=== PATIENT | male | born 1965 | race Caucasian/White ===

== ENCOUNTER 2018-09-17 07:25 | Day surgery (SDC) | payer OTHER ==
[~2018-09-17 07:25] MED LIST: PROPOFOL INJ 200 MG/20 ML VIAL IV ONE
[2018-09-17] MEDS ORDERED: PROPOFOL INJ 200 MG/20 ML VIAL IV ONE (08:20)
[2018-09-17 09:02] VITALS: BP 136/89
--- NOTE | 2018-09-17 13:12 | Operative Report ---
Operative Report DATE OF SURGERY: 09/17/18 Operative Report: The risks, benefits and alternatives of the procedure including the risk of bleeding, perforation requiring surgery have been explained to the patient in detail and informed consent has been obtained. Patient is taken back to the endoscopy suite and placed in the left, lateral decubital position. Timeout was called. Propofol medication is administered. A rectal examination is done which did not reveal any masses, tears or fissures. An Olympus videoscope was introduced into the patient's rectum. The scope was then carefully advanced all the way to the cecum. Cecum was identified by the usual anatomical landmarks including the ileocecal valve as well as the appendiceal office. Photodocumentation is obtained. The scope was then sequentially pulled back via the various segments of the colon including the ascending colon, hepatic flexure, transverse colon, splenic flexure, descending colon and finally into the rectosigmoid portions of the colon. Retroflexion maneuvers performed. PREOPERATIVE DIAGNOSIS: Ulcerative proctitis for surveillance colonoscopy POSTOPERATIVE DIAGNOSIS: Diverticulosis without any evidence of diverticulitis. Internal hemorrhoids. Mild areas of nonspecific inflammation in the colon status post biopsy OPERATION: Colonoscopy with biopsy SURGEON: LORENA MARTINEZ ANESTHESIA: LMAC TISSUE REMOVED OR ALTERED: As noted above. COMPLICATIONS: None. ESTIMATED BLOOD LOSS: None. INTRAOPERATIVE FINDINGS: As noted above. PROCEDURE: Patient tolerated the procedure well. No immediate postprocedure complications are noted. Patient is discharged in good condition. Discharge date 09/17/2018. Discharge diet: Regular. Discharge activity: Regular. 2 to 3-week follow-up to discuss findings. Patient is instructed to call the office or proceed to the emergency room should there be any further problems or questions. Wait on the pathology.
== END 2018-09-17 09:03 | disposition home or self-care (01) ==
LOC: END 07:25
PROVIDERS: ATTEND Internal Medicine Gastroenterology
DX: K51.20 Ulcerative (chronic) proctitis without complications (principal); K57.30 Diverticulosis of large intestine without perforation or abscess without bleeding; K64.8 Other hemorrhoids; K52.9 Noninfective gastroenteritis and colitis, unspecified; K62.89 Other specified diseases of anus and rectum
CPT/HCPCS: 88305 ×2; J2704; 45380

== ENCOUNTER → 2019-01-09 | Day surgery (SDC) | payer OTHER ==
--- NOTE | 2019-01-09 13:24 | RADIOLOGY REPORT (SQ) ---
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 TECHNIQUE: Dynamic and static ulrich-scale images acquired of the thyroid gland. Selected additional c olor/power Doppler images recorded. All images stored to PACS. LIMITATIONS: None. FINDINGS: RIGHT LOBE: Normal size. Homogeneous echotexture. No cystic or solid masses. LEFT LOBE: Normal size. Homogeneous echotexture. No cystic or solid masses. ISTHMUS: Normal size. Homogeneous echotexture. No cystic or solid masses. OTHER: There is a 4.9 x 2.6 x 1.7 cm well-demarcated hypoechoic area in the right upper aspect of the neck. There is no increased vascularity. Infectious or inflammatory node is a possibility. Neopla sm cannot be excluded. IMPRESSION: 1. Normal thyroid ultrasound. 2. Large hypoattenuating lesion in the right aspect of the upper neck. This measures 4.9 x 2.6 x 1. 7 cm. TECHNICAL DOCUMENTATION: JOB ID: [id number] [employer]- All Rights Reserved Reading location - IP/workstation name: [email or web address]
--- NOTE | 2019-01-09 14:56 | RADIOLOGY REPORT (SQ) ---
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 TECHNIQUE: The procedure was discussed with the patient and written informed consent obtained. A ti meout was performed to confirm the procedure and patient's identity. The skin of the neck was preppe d and draped in sterile fashion and 10 mL of 1% lidocaine administered for local anesthesia. Under sonographic guidance, fine needle aspiration biopsy was per formed of the mass in the right aspect of the neck Three separate aspirations were performed. Hemostasis was obtained with direct manual compression. There were no immediate complications. LIMITATIONS: None. FINDINGS: PATHOLOGY: Pending. IMPRESSION: ULTRASOUND-GUIDED BIOPSY PERFORMED OF A MASS IN THE RIGHT ASPECT OF THE NECK. PATHOLOGY PENDING AT THE TIME OF DICTATION. COMMENT: Patient medication list reviewed: Yes- Quality ID# [id number]:Eligible professional attests to doc umenting in the medical record they obtained, updated, or reviewed the patient's current medications. TECHNICAL DOCUMENTATION: JOB ID: [id number] [employer]- All Rights Reserved Reading location - IP/workstation name: [email or web address]
== END ==
LOC: RAD 12:28
PROVIDERS: ATTEND Otolaryngology
DX: E04.1 Nontoxic single thyroid nodule (principal)
CPT/HCPCS: 60100; 76536; 88173

== ENCOUNTER 2019-03-01 06:45 | Day surgery (SDC) | payer OTHER ==
[~2019-03-01 06:45] MED LIST changes: +CEFAZOLIN SODIUM 2 GM in DEXTROSE 5%-WATER 100 ML IV PRN; +LACTATED RINGERS 1000 ML IV PRN; -PROPOFOL INJ 200 MG/20 ML VIAL IV ONE
[2019-03-01] MEDS ORDERED: LIDOCAINE 2%/EPINEPHRINE INJ 1.7 ML CARTRIDGE ONE (07:35)
[2019-03-01] MEDS ORDERED: FENTANYL CITRATE INJ/PF 250 MCG/5 ML AMPULE ONE (08:26)
[2019-03-01] MEDS ORDERED: MIDAZOLAM 2 MG/2 ML INJ ONE (08:26)
[2019-03-01] MEDS ORDERED: DEXAMETHASONE SOD PHOSPHATE INJ 4 MG/1 ML VIAL ONE ×2 (08:27→13:05)
[2019-03-01] MEDS ORDERED: ONDANSETRON HCL INJ/PF 4 MG/2 ML SDV ONE (08:27)
[2019-03-01] MEDS ORDERED: PROPOFOL INJ 200 MG/20 ML VIAL IV ONE ×2 (08:27→09:51)
[2019-03-01] MEDS ORDERED: SUCCINYLCHOLINE CHLORIDE INJ 200 MG/10 ML VIAL ONE (08:56)
[2019-03-01] MEDS ORDERED: PROMETHAZINE HCL INJ 25 MG/1 ML VIAL IV PRN (10:05)
[2019-03-01] MEDS ORDERED: DIPHENHYDRAMINE HCL 50 MG/ML VIAL IV PRN (10:05)
[2019-03-01] MEDS ORDERED: MORPHINE SULFATE 10 MG/ML INJ IV PRN (10:05)
[2019-03-01] MEDS ORDERED: FENTANYL CITRATE INJ/PF 100 MCG/2 ML AMPUL IV PRN ×3 (10:05)
[2019-03-01] MEDS ORDERED: MEPERIDINE HCL/PF INJ 25 MG/1 ML DISP.SYRIN IV PRN (10:05)
[2019-03-01] MEDS ORDERED: ONDANSETRON HCL INJ/PF 4 MG/2 ML SDV IV PRN ×2 (10:05→12:46)
[2019-03-01] MEDS ORDERED: KETOROLAC TROMETHAMINE INJ/PF 30 MG/1 ML SDV ONE (12:21)
[2019-03-01] MEDS ORDERED: HYDROCODONE/ACETAMINOPHEN 5-325 MG TABLET PO PRN (12:46)
[2019-03-01 13:58] VITALS: BP 130/83
--- NOTE | 2019-03-06 15:41 | Operative Report ---
Operative Report-[facility] Operative Report: Date of procedure: March 01, 2019 Preoperative diagnoses: 1. Right neck mass Postoperative diagnoses: 1. Right neck mass Operation performed: 1. Removal of/excision of a deep space right neck mass greater than 5 x 3 x 2 cm directly adjacent the right SCM/sternocleidomastoid muscle and the right submandibular gland (CPT code 88711) 2. Right neck exploration under general anesthesia 3. Intraoperative right facial nerve monitoring with the [facility] Primary Surgeon of Record: Dr. Prakash Long Assisting surgeon: NONE Anesthetic: General endotracheal tube anesthesia Anesthesia provider: CORTEZ Christine Estimated blood loss: 25 mL Fluids: 600 mL Urine output: N/A Complications: None Drains: None Sponge Count: Verified Needle Count: Verified Materials forwarded as specimen: 1. Right neck mass, level 2/3, measuring greater than 5 x 3 x 2 cm 2. Deep neck space right sided lymph nodes deep to the neck mass in the area of level 2/3 Findings: 1. Right neck mass, level 2/3, measuring greater than 5 x 3 x 2 cm and the mass was elongated and multi lobular with irregular margins and was otherwise noted to be intact upon removal. The mass was directly adjacent/butted up against the right submandibular gland and right SCM/sternocleidomastoid muscle. 2. There was a small cluster of small lymph nodes deep to the right neck mass which were also removed as permanent specimens. 3. The right SCM, submandibular gland, and surrounding tissues otherwise appeared unremarkable and there was no additional lymphadenopathy or concerning lymph nodes noted. Indications: This is a 53-year-old white male patient who has been seen and evaluated [place] [facility]. 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 There was no sequelae and the patient had been doing well until a right neck fullness/mass was noted to increase in size over the past year. CT neck imaging and right neck mass FNAB, which was unremarkable, were all completed prior to surgery. There was an extensive discussion held with the patient with plan made to proceed with right neck exploration with neck mass removal and intraoperative facial nerve monitoring. The patient voiced an understanding of the medical findings and desire to proceed with right neck surgery. The patient voiced an understanding of the procedure/surgery and all of the risks and complications, and consent was obtained. Procedure: The patient was taken to the main operating room and placed on the operating room table in the supine position. Appropriate monitors were placed. Using mask and IV access, general anesthesia was induced. The patient was next transorally intubated without difficulty. At this point the right facial nerve monitoring NIM system was set up and tested appropriately before beginning the case. The patient was then positioned for neck surgery. The patient's right neck had a planned incision site marked with a surgical marking pen followed by infiltration with local anesthetic with epinephrine. The patient was then prepped and draped in a sterile fashion for right surgery. Next, an incision was made down through the level of the subcutaneous tissues and platysma. Using blunt and sharp dissection as well as Bovie and bipolar electrocautery skin/soft tissue flaps were elevated in a sub-platysmal fashion without difficulty. The right SCM was identified along with the right submandibular gland. The right neck mass as described above was identified via right neck exploration and was noted to be directly adjacent these structures. Using blunt and sharp dissection along with cautery the right neck mass was mobilized away from surrounding structures and removed. The level 2/3 small lymph nodes just deep to the mass were also mobilized and removed for permanent pathology evaluation. The wound site was again thoroughly irrigated with normal saline and suctioned. Bipolar electrocautery was used to provide adequate hemostasis. At this point to postage size stamp pieces of Surgicel were placed into the wound bed. There was again adequate hemostasis noted. At this point 5-0 Monocryl suture was used to reapproximate the deep tissues and the platysmal layer. 5-0 Monocryl suture was also used to reapproximate the subcutaneous and deep dermal tissue layers followed by skin reapproximation using a continuous running suture. Next, the skin was cleaned and dried followed by placement of Mastisol, Steri-Strips, and a fluffs pressure dressing. The patient was then returned to the anesthesia staff and was allowed to emerge from general anesthesia. The patient was extuba garrick in the main operating room and was then transported to the post-anesthesia recovery unit in stable condition. There were no complications.
== END 2019-03-01 13:45 | disposition home or self-care (01) ==
LOC: OROUT 06:45
PROVIDERS: ATTEND Otolaryngology
DX: C79.89 Secondary malignant neoplasm of other specified sites (principal); G47.33 Obstructive sleep apnea (adult) (pediatric); Z79.899 Other long term (current) drug therapy
CPT/HCPCS: 88307 ×2; 00320; 21554; J2250; J3490; J0690; J1100; J3010; J1885; J0330; J2405; J7060; J2704; 320; 88341; 88342

== ENCOUNTER → 2019-03-19 | Outpatient (CLI) | payer OTHER ==
--- NOTE | 2019-03-20 14:34 | RADIOLOGY REPORT (SQ) ---
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 RADIONUCLIDE AND DOSE: 8.7 mCi F18 FDG The route of agent administration: Intravenous FASTING BLOOD SUGAR: 88 mg/dl CONTRAST TYPE AND DOSE: No CT contrast given. TECHNIQUE: Blood glucose level was verified. Above dose of FDG was injected intravenously. 2-D seg mented attenuation correction images were obtained from the base of the skull to the midthighs. Nonc ontrast CT images were obtained for attenuation correction and fusion with emission images. CT image s were performed without oral or intravenous contrast and are not sensitive for parenchymal lesions. A series of overlapping emission PET images were obtained. Images reviewed and manipulated at [facility] work station by the radiologist. Images stored on PACS. LIMITATIONS: None. FINDINGS: HEAD AND NECK: No areas of abnormal metabolic activity in the soft tissues of the head and neck. CHEST: No areas of abnormal metabolic activity in the chest. ABDOMEN AND PELVIS: The liver demonstrates heterogeneous non focal FDG uptake with an average SUV of 2.6. There is expected physiologic activity throughout the gastrointestinal and genitourinary tracts . No areas of abnormal metabolic activity are identified in the abdomen and pelvis. PROXIMAL LOWER EXTREMITIES: No areas of abnormal metabolic activity in the soft tissues of the lower extremities. BONES: Mild focal uptake within the right glenohumeral joint is presumed to be related to osteoarthro sis. No areas of abnormal metabolic activity are identified in the imaged axial and appendicular ske leton. ADDITIONAL CT FINDINGS: Variant circumaortic left renal vein. OTHER: No other findings. IMPRESSION: No metabolic evidence of metastases. TECHNICAL DOCUMENTATION: JOB ID: [id number] [employer]- All Rights Reserved Reading location - IP/workstation name: [email or web address]
== END ==
LOC: RAD 10:18
PROVIDERS: ATTEND Otolaryngology
DX: C76.0 Malignant neoplasm of head, face and neck (principal)
CPT/HCPCS: 78815; A9552

== ENCOUNTER 2019-03-27 11:31 | Day surgery (SDC) | payer OTHER ==
[~2019-03-27 11:31] MED LIST changes: -CEFAZOLIN SODIUM 2 GM in DEXTROSE 5%-WATER 100 ML IV PRN; +CLINDAMYCIN 900 MG/D5W RTU 900 MG/50 ML RTUPB IV ONE; -LACTATED RINGERS 1000 ML IV PRN
[2019-03-27] MEDS ORDERED: ROCURONIUM BROMIDE INJ 50 MG/5 ML VIAL IV ONE (12:00)
[2019-03-27] MEDS ORDERED: SUCCINYLCHOLINE CHLORIDE INJ 200 MG/10 ML VIAL ONE (12:00)
[2019-03-27] MEDS ORDERED: HYDROMORPHONE HCL INJ/PF 2 MG/ML AMPULE ONE (14:51)
[2019-03-27] MEDS ORDERED: MIDAZOLAM 2 MG/2 ML INJ ONE ×2 (14:51→15:57)
[2019-03-27] MEDS ORDERED: FENTANYL CITRATE INJ/PF 100 MCG/2 ML AMPUL ONE (14:51)
[2019-03-27] MEDS ORDERED: PROPOFOL INJ 200 MG/20 ML VIAL IV ONE (14:52)
[2019-03-27] MEDS ORDERED: BUPIVACAINE HCL 0.5%/EPI 1:200000 INJ 1.8 ML CARTRIDGE ONE (15:21)
[2019-03-27] MEDS ORDERED: OXYMETAZOLINE HCL 0.05% NASAL SPRAY 15 ML BOTTLE ONE (15:21)
[2019-03-27] MEDS ORDERED: PROMETHAZINE HCL INJ 25 MG/1 ML VIAL ONE (15:46)
[2019-03-27] MEDS ORDERED: DEXAMETHASONE SOD PHOSPHATE INJ 4 MG/1 ML VIAL ONE (15:46)
[2019-03-27] MEDS ORDERED: MORPHINE SULFATE 10 MG/ML INJ IV PRN (16:21)
[2019-03-27] MEDS ORDERED: PROMETHAZINE HCL INJ 25 MG/1 ML VIAL IV PRN (16:21)
[2019-03-27] MEDS ORDERED: ONDANSETRON HCL INJ/PF 4 MG/2 ML SDV IV PRN ×2 (16:21→19:50)
[2019-03-27] MEDS ORDERED: FENTANYL CITRATE INJ/PF 100 MCG/2 ML AMPUL IV PRN ×3 (16:21)
[2019-03-27] MEDS ORDERED: OXYCODONE-ACETAMINOPHEN 5-325 MG TABLET PO PRN ×3 (16:21→19:49)
[2019-03-27] MEDS ORDERED: MEPERIDINE HCL/PF INJ 25 MG/1 ML DISP.SYRIN IV PRN (16:21)
[2019-03-27] MEDS ORDERED: DIPHENHYDRAMINE HCL 50 MG/ML VIAL IV PRN (16:21)
[2019-03-27] MEDS ORDERED: MORPHINE SULFATE 10 MG/ML INJ ONE (18:45)
[2019-03-27] MEDS ORDERED: LISINOPRIL 10 MG TABLET PO ONE (19:00)
[2019-03-27] MEDS ORDERED: OXYCODONE-ACETAMINOPHEN 5-325 MG TABLET ONE (19:06)
[2019-03-28 22:26] VITALS: BP 153/90
--- NOTE | 2019-04-22 09:23 | Operative Report ---
Operative Report-[facility] Operative Report: DATE OF OPERATION: March 27, 2019 PREOPERATIVE DIAGNOSIS: 1. 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 Acute right otitis externa 3. Right ear pain POSTOPERATIVE DIAGNOSIS: 1. 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 Acute right otitis externa 3. Right ear pain PROCEDURE: 1. Bilateral tonsillectomy patient age greater than 12 2. Bilateral rigid transnasal surgical endoscopy 3. Bilateral transnasal site-directed biopsies of the nasopharynx 4. Bilateral rigid upper airway endoscopy with rigid laryngoscopes with bilateral base of tongue biopsies 5. Bilateral rigid upper airway endoscopy with rigid laryngoscopes bilateral pyriform sinus biopsies 6. Right ear suction debridement under microscopy 7. Right ear exam under anesthesia Primary Surgeon of Record: Dr. Prakash Long CHOCOLATE REFINING ROLLER: None Anesthesia Staff: CORTEZ Garcia ANESTHESIA: General Endotracheal Tube Anesthesia DRAINS: None SPONGE COUNT: Verified Needle Count: N/A SPECIMEN/MATERIALS FORWARD TO THE LAB: 1. Left and Right Tonsillar Tissue for rule out cancer 2. Numerous nasal pharyngeal tissue biopsies for rule out cancer 3. Numerous bilateral base of tongue tissue biopsies for rule out cancer 4. Numerous bilateral pyriform sinus tissue biopsies for rule out cancer ESTIMATED BLOOD LOSS: 20 mL IV FLUIDS: 1000 mL COMPLICATIONS: None Findings: 1. The tonsils were 2+ in size, were endophytic in nature, and were cryptic in appearance. 2. The nasopharyngeal tissues were friable in appearance with a small midline appearing mucous retention cyst/Tornwaldt's cyst, otherwise there were no sinonasal polyps masses or lesions noted. 3. The soft palatal tissues were redundant in nature and the uvula was unremarkable in appearance. 4. The base of tongue and piriform sinuses appeared unremarkable overall. 5. Right external auditory canal with narrowing/edema with complete obstruction with extensive moist debris, and the tympanic membrane was noted to be intact with possible middle ear effusion. INDICATIONS: This is a 54-year-old white male patient who has been seen, evaluated, and followed in the [place] [facility] office. The patient had been recently taken to the main operating room with removal of a right neck mass at level 2/3 measuring approximately 5 x 3 x 2 cm in size which came back consistent with squamous cell carcinoma and was positive for HPV association per Replaced by [facility] pathology. The patient then underwent PET CT imaging which appeared fairly unremarkable per radiology with no primary focus identified. After extensive discussion with the patient the recommendation and plan was to proceed with a tonsillectomy, bilateral transnasal surgical endoscopy with directed biopsies of the nasopharynx, and upper airway rigid endoscopy with directed biopsies of the bilateral base of tongue and bilateral piriform sinuses to attempt at identifying a primary focus/etiology of the squamous cell carcinoma. The patient was also with an acute otitis externa episode affecting the right ear with significant ear pain with plan to address this as well in the main operating room with suction debridement under microscopy and exam of the ear under anesthesia. The procedures and all of the risks and complications were all discussed in detail with the patient. He voiced an understanding of the described surgical plan, were in agreement, and consent was obtained. DESCRIPTION OF OPERATIVE PROCEDURE: The patient was taken to the main operating room and was placed on the operating room table in the supine position. Appropriate monitors were placed. Using mask and IV access general anesthesia was induced. The patient was next transorally intubated without difficulty. The table was then rotated 90 and the patient was positioned and prepped for surgery as detailed above. The right ear was examined through an ear speculum under microscopy with extensive moist debris suctioned. Findings are as noted above. There was a Merocel otowick placed followed by Otovel eardrops. The microscope was withdrawn. The patient next underwent bilateral transnasal rigid surgical endoscopy with directed nasopharyngeal biopsies to include biopsy/disruption of the midline mucous retention cyst/Tornwaldt's cyst with specimens passed off for permanent pathology evaluation. The table was next rotated 90 degrees and the patient was positioned and prepped for tonsil surgery/tonsillectomy, upper airway endoscopy with rigid laryngoscopes for bilateral biopsies of the base of tongue and pyriform sinuses. The lips, teeth, tongue, and gums were inspected and noted to be without defect. The patient had a mouth gag inserted. It was opened and the patient was placed into suspension. There was a soft catheter passed through the nose that was used to suspend the soft palate. Findings are as noted above. The plasma J- hook device was used to dissect and remove the tonsils from the tonsillar fossae without difficulty. This was also used to provide adequate hemostasis. Normal saline irrigation was performed and was suctioned. Adequate hemostasis was noted. Suction electrocautery was also used to provide additional hemostasis in the nasopharynx were biopsies had been taken. Saline irrigation was performed and adequate hemostasis was noted. The soft catheter was released and removed from the patients nose. The patient was next released from suspension and the mouth gag was closed. It was opened again and there was again no bleeding noted. It was then removed from the patient's mouth without difficulty. There was no damage to the lips, teeth, tongue, or gums noted. At this point a rigid laryngoscope was used along with a mouthguard over the upper teeth and multiple biopsies were taken with biopsy forceps from the left and right base of tongue as well as the left and right pyriform sinuses which were all passed off for permanent pathology evaluation. Findings are as noted above. The rigid laryngoscope was removed and the mouthguard from over the upper teeth was removed and there was no damage to the lips, teeth, tongue, or gums noted. The patient was then returned to the anesthesia staff and was allowed to emerge from general anesthesia. The patient was extubated in the operating room and was transported to the post anesthesia recovery unit in stable condition. There were no complications.
== END 2019-03-27 20:30 | disposition home or self-care (01) ==
LOC: OROUT 11:31
PROVIDERS: ATTEND Otolaryngology
DX: J03.80 Acute tonsillitis due to other specified organisms (principal); J35.8 Other chronic diseases of tonsils and adenoids; R22.1 Localized swelling, mass and lump, neck; Z85.89 Personal history of malignant neoplasm of other organs and systems; I10 Essential (primary) hypertension; Z79.899 Other long term (current) drug therapy; C44.42 Squamous cell carcinoma of skin of scalp and neck; H60.501 Unspecified acute noninfective otitis externa, right ear
CPT/HCPCS: 88304 ×2; 88305 ×2; 00170; 42826; 31535; J2250; J3490 ×4; J1100; J2270; J1170; J2550; J0330; J2704; 170; J3010